=== PATIENT | female | born 1985 | race Two or more races ===

== ENCOUNTER 2016-10-28 20:39 | Emergency (ER) | payer OTHER ==
[2016-10-28 20:47] VITALS: BP 108/57; PULSE 91; TEMP 98.3; BMI 32.5
[2016-10-28] MEDS ORDERED: predniSONE 20 MG TABLET (UD) ONE (22:34)
[2016-10-28] MEDS ORDERED: ALBUTEROL SO4 2.5/IPRATROPIUM 0.5 INH SOL 3 ML VIAL.NEB. NEB ONE ×3 (22:34→23:25)
[2016-10-28] MEDS ORDERED: ALBUTEROL SO4 0.083% IH SOL 2.5 MG/3 ML VIAL.NEB. NEB ONE (22:46)
[2016-10-28] MEDS ORDERED: predniSONE 20 MG TABLET (UD) PO ONE (22:46)
--- NOTE | 2016-10-28 22:52 | PDOC ---
History of Present Illness - General Chief Complaint: Respiratory Stated Complaint: DIFFICULTY BREATHING Time Seen by Provider: 10/28/16 22:46 History Source: Patient Exam Limitations: No Limitations - History of Present Illness Initial Comments: 10/28/16 22:51 Patient is a 31 year old female with h/o multiple miscarriages, G7 P 1 who is 22 weeks on Lovenox, h/o C/S and D&C c/o "I can't breath" States she was expose to her sister who had similar symptoms. She has been having coughing , wheezing & sore throat x 1 week. States she called her doctor and was told to take tylenol cold and flu. States the sore throat got better but the wheezing and the cough continued. States for the past few day unable to breath and has wheezing and b/l sides hurt from coughing. Denies fever, chills, chest pain. Denies any abd pain, no vaginal bleeding. Feels the baby kicking. PMD: Dr Mccabe PMHX: as above, ALL: NKDA GENERAL/CONSTITUTIONAL: [No fever or chills. No weakness. No weight change.] HEAD, EYES, EARS, NOSE AND THROAT: [No change in vision. No ear pain or discharge. No sore throat.] CARDIOVASCULAR: [No chest pain or shortness of breath.] RESPIRATORY: (+) cough, wheezing, or hemoptysis.] GASTROINTESTINAL: [No nausea, vomiting, diarrhea or constipation. No rectal bleeding.] GENITOURINARY: [No dysuria, frequency, or change in urination.] MUSCULOSKELETAL: [No joint or muscle swelling or pain. No neck or back pain.] SKIN AND BREASTS: [No rash or easy bruising.] NEUROLOGIC: [No headache, vertigo, loss of consciousness, or loss of sensation.] PSYCHIATRIC: [No depression or anxiety.] ENDOCRINE: [No increased thirst. No abnormal weight change.] HEMATOLOGIC/LYMPHATIC: [No anemia, easy bleeding, or history of blood clots.] ALLERGIC/IMMUNOLOGIC: [No hives or skin allergy. No latex allergy.] GENERAL: [The patient is awake, alert, and fully oriented, in mild distress.] HEAD: [Normal with no signs of trauma.] EYES: [Pupils equal, round and reactive to light, extraocular movements intact, sclera anicteric, conjunctiva clear.] ENT: [Ears normal, nares patent, oropharynx clear without exudates. Moist mucous membranes.] NECK: [Normal range of motion, supple without lymphadenopathy, JVD, or masses.] LUNGS: (+) bilaterally expiratory wheezes, and no crackles, good air entry, no retraction] HEART: [Regular rate and rhythm, normal S1 and S2 without murmur, rub.] ABDOMEN: [Soft, nontender, normoactive bowel sounds. No guarding, no rebound. No masses, gravid 22 weeks (+) FH] EXTREMITIES: [Normal range of motion, no edema. No clubbing or cyanosis. No cords, erythema, or tenderness.] NEUROLOGICAL: [Cranial nerves II through XII grossly intact. Normal speech, normal gait.] PSYCH: [Normal mood, normal affect.] SKIN: [Warm, Dry, normal turgor, no rashes or lesions noted.] Past History - Past Medical History Allergies/Adverse Reactions: Allergies Allergy/AdvReac Type Severity Reaction Status Date / Time No Known Allergies Allergy Verified 10/28/16 20:46 Home Medications: Ambulatory Orders Albuterol Sulfate Inhaler - [Ventolin HFA Inhaler -] 2 inh PO Q4H #1 inh Prednisone [Deltasone -] 40 mg PO DAILY #4 tablet 10/29/16 - Surgical History Abdominal Surgery: Yes (d&C) - Immunization History Immunization Up to Date: No - Psycho/Social/Smoking Cessation Hx Anxiety: No Suicidal Ideation: No Smoking History: Current every day smoker Have you smoked in the past 12 months: Yes Number of Cigarettes Smoked Daily: 20 Information on smoking cessation initiated: No 'Breaking Loose' booklet given: 11/26/15 Hx Alcohol Use: No Drug/Substance Use Hx: No Substance Use Type: None *Physical Exam - Vital Signs Last Vital Signs Temp Pulse Resp BP Pulse Ox 98.3 F 91 H 18 108/57 98 10/28/16 20:43 10/28/16 20:43 10/28/16 20:43 10/28/16 20:43 10/28/16 20:43 ED Treatment Course - Medications Given in the ED: ED Medications Discontinued Medications Generic Name Dose Route Start Last Admin Trade Name Freq PRN Reason Stop Dose Admin Albuterol Sulfate 1 amp 10/28/16 22:46 10/28/16 22:50 Ventolin 0.083% Nebulizer Soln - NEB 10/28/16 22:47 1 amp ONCE ONE Administration Albuterol/Ipratropium 1 amp 10/28/16 22:46 10/28/16 22:50 Duoneb - NEB 10/28/16 22:47 1 amp ONCE ONE Administration Prednisone 60 mg 10/28/16 22:46 10/28/16 22:50 Deltasone - PO 10/28/16 22:47 60 mg ONCE ONE Administration Medical Decision Making - Medical Decision Making 10/28/16 23:45 Patient is a 31 year old female with h/o multiple miscarriages, G7 P 1 who is 22 weeks on Lovenox, h/o C/S and D&C c/o "I can't breath" States she was expose to her sister who had similar symptoms c/o coughing, wheezing, sore throat x 1 week consistent with bronchitis. will give neb treatment, Prednisone 60mg po 10/29/16 00:03 Patient is feeling better still has mild wheezing will continue nebs I discussed the physical exam findings, ancillary test results and final diagnoses with the patient. I answered all of the patient's questions. The patient was satisfied with the care received and felt comfortable with the discharge plan and treatment plan. The Patient agrees to follow up with the primary care physician within 24-72 hours. *DC/Admit/Observation/Transfer Diagnosis at time of Disposition: Bronchitis - Discharge Dispostion Disposition: HOME Condition at time of disposition: Stable - Prescriptions Prescriptions: Prednisone [Deltasone -] 40 mg PO DAILY #4 tablet Albuterol Sulfate Inhaler - [Ventolin HFA Inhaler -] 2 inh PO Q4H #1 inh - Patient Instructions Printed Discharge Instructions: DI for Acute Bronchitis Additional Instructions: Your Discharge Instructions: You must call primary care physician within 24 hours to arrange follow-up. Return to the Emergency Department with any new, persistent or worsening symptoms, for fever, chills, SOB, dizziness or any other concerning changes that may occur. - Post Discharge Activity Work/School Note: Back to Work
== END 2016-10-29 00:16 | disposition home or self-care (01) ==
LOC: JER 20:39 → JERFT 20:39 → JER 10-29 00:16
PROC: 3E0F7GC Introduction of Other Therapeutic Substance into Respiratory Tract, Via Natural or Artificial Opening (ICD-10-PCS; principal; 2016-10-28)
PROC: 3E0F7GC Introduction of Other Therapeutic Substance into Respiratory Tract, Via Natural or Artificial Opening (ICD-10-PCS; 2016-10-28)
PROC: 3E0F7GC Introduction of Other Therapeutic Substance into Respiratory Tract, Via Natural or Artificial Opening (ICD-10-PCS; 2016-10-28)
DX: O99.89 Other specified diseases and conditions complicating pregnancy, childbirth and the puerperium (principal); J40 Bronchitis, not specified as acute or chronic; Z79.01 Long term (current) use of anticoagulants; Z3A.22 22 weeks gestation of pregnancy
CPT/HCPCS: 94640; 99281-25

== ENCOUNTER 2016-11-17 19:28 | Emergency (ER) | payer OTHER ==
[2016-11-17 19:40] VITALS: BMI 32.5
--- NOTE | 2016-11-17 20:47 | PDOC ---
History of Present Illness - General History Source: Patient Exam Limitations: No Limitations - History of Present Illness Initial Comments: 11/17/16 21:01 Patient is a 31 year old female, 24 weeks , with no pmhx who presents to the ED with right flank pain. Patient states that she woke up today with right flank pain that radiates to the right side of her abdomen. She also reports 2 episodes of vomiting and nausea. Patient denies any fever. She denies any urinary symptoms. PSH - [employer] - Dr. Arceo <Court Hamlin - Last Filed: 11/17/16 21:01> <Mary Tena - Last Filed: 11/18/16 00:38> - General Chief Complaint: Pain, Acute Stated Complaint: ABD PAIN/ 24 WEEKS Time Seen by Provider: 11/17/16 20:35 Past History <Court Hamlin - Last Filed: 11/17/16 21:01> - Past Medical History Other medical history: denies - Surgical History Abdominal Surgery: Yes (d&C) - Immunization History Immunization Up to Date: No - Psycho/Social/Smoking Cessation Hx Anxiety: No Suicidal Ideation: No Smoking History: Current every day smoker Have you smoked in the past 12 months: Yes Number of Cigarettes Smoked Daily: 20 Information on smoking cessation initiated: No 'Breaking Loose' booklet given: 11/26/15 Hx Alcohol Use: No Drug/Substance Use Hx: No Substance Use Type: None <Mary Tena - Last Filed: 11/18/16 00:38> - Past Medical History Allergies/Adverse Reactions: Allergies Allergy/AdvReac Type Severity Reaction Status Date / Time No Known Allergies Allergy Verified 11/17/16 19:40 Home Medications: Ambulatory Orders Enoxaparin [Lovenox -] 40 mg SQ DAILY 11/17/16 Vit Calc,Iron,Folic [ Vitamins] 1 each PO 11/17/16 Review of Systems - Review of Systems Able to Perform ROS?: Yes Comments:: 11/17/16 21:03 GENERAL/CONSTITUTIONAL: No fever or chills. No weakness. HEAD, EYES, EARS, NOSE AND THROAT: No change in vision. No ear pain or discharge. No sore throat. CARDIOVASCULAR: No chest pain or shortness of breath. RESPIRATORY: No cough, wheezing, or hemoptysis. GASTROINTESTINAL: (+)nausea, vomiting. No diarrhea or constipation. GENITOURINARY: (+)r flank pain. No dysuria, frequency, or change in urination. MUSCULOSKELETAL: No joint or muscle swelling or pain. No neck or back pain. SKIN: No rash NEUROLOGIC: No headache, vertigo, loss of consciousness, or change in strength/ sensation. ENDOCRINE: No increased thirst. No abnormal weight change. HEMATOLOGIC/LYMPHATIC: No anemia, easy bleeding, or history of blood clots. ALLERGIC/IMMUNOLOGIC: No hives or skin allergy. <Court Hamlin - Last Filed: 11/17/16 21:01> *Physical Exam - Vital Signs Last Vital Signs Temp Pulse Resp BP Pulse Ox 97.9 F 84 18 111/65 99 11/17/16 19:36 11/17/16 19:36 11/17/16 19:36 11/17/16 19:36 11/17/16 19:36 - Physical Exam Comments: 11/17/16 21:04 GENERAL: Awake, alert, and fully oriented, in no acute distress HEAD: No signs of trauma EYES: PERRLA, EOMI, sclera anicteric, conjunctiva clear ENT: Auricles normal inspection, hearing grossly normal, nares patent, oropharynx clear without exudates. Moist mucosa NECK: Normal ROM, supple, no lymphadenopathy, JVD, or masses LUNGS: Breath sounds equal, clear to auscultation bilaterally. No wheezes, and no crackles HEART: Regular rate and rhythm, normal S1 and S2, no murmurs, rubs or gallops ABDOMEN: (+)gravid. Soft, nontender, normoactive bowel sounds. No guarding, no rebound. No masses EXTREMITIES: Normal range of motion, no edema. No clubbing or cyanosis. No cords, erythema, or tenderness NEUROLOGICAL: Cranial nerves II through XII grossly intact. Normal speech, normal gait SKIN: Warm, Dry, normal turgor, no rashes or lesions noted. <Court Hamlin - Last Filed: 11/17/16 21:01> - Vital Signs Last Vital Signs Temp Pulse Resp BP Pulse Ox 97.9 F 84 18 111/65 99 11/17/16 19:36 11/17/16 19:36 11/17/16 19:36 11/17/16 19:36 11/17/16 19:36 <Mary Tena - Last Filed: 11/18/16 00:38> ED Treatment Course - LABORATORY CBC & Chemistry Diagram: 11/17/16 21:20 11/17/16 21:20 <Mary Tena - Last Filed: 11/18/16 00:38> Medical Decision Making - Medical Decision Making 11/17/16 21:13 Pt is 24 weeks . Pt developed right neck and trapezius pain yesterday which then migrated to her right flank. She states that the pain radiated beltlike around her abdomen today. Pain is causing her to be nauseous and resulted in her vomiting twice. She has no abdominal surgiccal hx. Only pelvic surgeries: and a D+C. Mis5. Pt states that she has been taking Lovenox daily so that she can sustain her . She states that she had all kinds of hematologic assessment, but was never found to have anything. 11/17/16 21:47 Pt's CBC normal. UA shows small ketones. No blood in the urine. 11/18/16 00:36 Patient Name: Audie Hu THIS IS A PRELIMINARY REPORT FROM [facility] IMAGES: 33 EXAM DATE AND TIME: 2016-11-17 22:39:01.0 EXAM: ULTRASOUND RENAL INCOMPLETE Normal right kidney with no renal mass, stones or hydronephrosis. Left kidney not imaged. Cholelithiasis incidentally noted. Live intrauterine with heartbeat 133-135 bpm. THIS DOCUMENT HAS BEEN ELECTRONICALLY SIGNED 11/18/16 00:37 Pt will be sent upstairs to L+D for monitoring. She understands that she has GB stones and that she should eat leaner meals and tylenol for pain. <Mary Tena - Last Filed: 11/18/16 00:38> *DC/Admit/Observation/Transfer - Attestations Scribe Attestion: 11/17/16 21:04 Documentation prepared by JANETT Bajwa, acting as medical coding manager for Mary Tena MD. <Court Hamlin - Last Filed: 11/17/16 21:01> - Discharge Dispostion Admit: No <Mary Tena - Last Filed: 11/18/16 00:38> Diagnosis at time of Disposition: Gallstones, - Discharge Dispostion Disposition: HOME Condition at time of disposition: Stable - Patient Instructions Printed Discharge Instructions: DI for Gallstones
[2016-11-17] MEDS ORDERED: SODIUM CHLORIDE 0.9% 500 ML INFUS.BAG IV ONE (20:54)
[2016-11-17] MEDS ORDERED: morphine CARPU-JECT 2 MG/1 ML DISP.SYRIN IVPUSH ONE (20:55)
[2016-11-17] MEDS ORDERED: METOCLOPRAMIDE HCL INJECTION 10 MG/2 ML VIAL IVPB ONE (20:56)
[2016-11-17] MEDS ORDERED: ONDANSETRON 4 MG/2 ML VIAL IVPB ONE (21:07)
[2016-11-17] MEDS ORDERED: morphine CARPU-JECT 4 MG/1 ML DISP.SYRIN ONE (21:09)
[2016-11-17] MEDS ORDERED: ONDANSETRON 4 MG/2 ML VIAL ONE (21:10)
[2016-11-17 21:32] LABS: BASOPHIL 0.3 % (0-2.0); EOSINOPHIL 0.4 % (0-4.5); MCH 29.1 pg (25.7-33.7); MCHC 33.1 g/dl (32.0-36.0); MEAN CELL VOLUME 87.9 fl (80-96); MEAN PLT VOLUME 8.2 fl (7.5-11.1); NEUTROPHILS 74.4 % (42.8-82.8); PLATELET COUNT 184 K/MM3 (134-434); RDW 13.4 % (11.6-15.6); WHITE BLOOD COUNT 9.6 K/mm3 (4.0-10.0)
[2016-11-17 21:33] LABS: URINE APPEARANCE CLEAR; URINE BILIRUBIN NEGATIVE (NEGATIVE); URINE BLOOD NEGATIVE (NEGATIVE); URINE COLOR STRAW; URINE GLUCOSE (UA) NEGATIVE (NEGATIVE); URINE KETONE TRACE (NEGATIVE); URINE LEUK ESTERASE NEGATIVE (NEGATIVE); URINE NITRITE NEGATIVE (NEGATIVE); URINE PROTEIN NEGATIVE (NEGATIVE); URINE UROBILINOGEN NEGATIVE mg/dL (0.2-1.0)
[2016-11-17 21:51] LABS: AMYLASE 43 U/L (25-115)
[2016-11-17 21:56] LABS: ALBUMIN 2.4 g/dl (3.4-5.0); ANION GAP 9 (8-16); BILIRUBIN,TOTAL 0.2 mg/dL (0.2-1.0); CALCIUM 8.9 mg/dL (8.5-10.1); CO2 23 mmol/L (21-32); CREATININE 0.5 mg/dL (0.55-1.02); GLUCOSE,RANDOM 80 mg/dL (74-106); SGOT/AST 15 U/L (15-37); SGPT/ALT 17 U/L (12-78); TOT PROT 6.2 g/dl (6.4-8.2)
[2016-11-17 21:57] LABS: ALK PHOS 100 U/L (45-117)
[2016-11-18] MEDS ORDERED: MAG HYDROX/AL HYDROX/SIMETH 30 ML UNIT-DOSE CUP PO ONE (00:37)
[2016-11-18] MEDS ORDERED: MAG HYDROX/AL HYDROX/SIMETH 30 ML UNIT-DOSE CUP ONE (00:53)
--- NOTE | 2016-11-18 01:52 | PN ---
Progress Note (short form) - Note Progress Note: 31 y/o comes at 24 weeks from the er with complaints of gb pain. Pt was cleared by the er and is a pt of dr hussein. Baby is adequate for 24 wks. No lof, no bleeding. Will dc home
[2016-11-18 02:40] VITALS: BP 121/63; PULSE 83; TEMP 98.2
== END 2016-11-18 02:30 | disposition home or self-care (01) ==
LOC: JER 19:28
PROC: 3E033NZ Introduction of Analgesics, Hypnotics, Sedatives into Peripheral Vein, Percutaneous Approach (ICD-10-PCS; principal; 2016-11-17)
PROC: 3E033GC Introduction of Other Therapeutic Substance into Peripheral Vein, Percutaneous Approach (ICD-10-PCS; 2016-11-17)
DX: O99.612 Diseases of the digestive system complicating pregnancy, second trimester (principal); K80.20 Calculus of gallbladder without cholecystitis without obstruction; Z3A.24 24 weeks gestation of pregnancy
CPT/HCPCS: 36415; 76775-TC; 80053; 81003; 82150; 83690; 85025; 96374; 96375; 99283-25

== ENCOUNTER 2017-05-31 07:26 | Emergency (ER) | payer OTHER ==
[2017-05-31 07:40] VITALS: BP 114/80; PULSE 72; TEMP 97.6; BMI 30.5
[2017-05-31] MEDS ORDERED: KETOROLAC TROMETHAMINE 30 MG/1 ML VIAL IVPUSH ONE (07:44)
[2017-05-31] MEDS ORDERED: KETOROLAC TROMETHAMINE 30 MG/1 ML VIAL ONE (07:46)
--- NOTE | 2017-05-31 08:10 | PDOC ---
Attending Attestation - Resident Resident Name: Ramón Couch - ED Attending Attestation I have performed the following: I have examined & evaluated the patient, The case was reviewed & discussed with the resident, I agree w/resident's findings & plan, Exceptions are as noted - Physicial Exam PE: 05/31/17 11:27 Patient is awake and alert, lying supine, in mild to moderate distress. nc, atr perrla, eomi cta, rrr sft, nt, nd, no rash + straight leg on the right back: no midline ttp, + left paraspinal ttp reproducing pts sxs gait-stable dtrs: + 2 b/l at the knees/ankles - Medical Decision Making 05/31/17 12:25 Patient is a well-appearing 31-year-old female who presents with atraumatic back pain. No focal neurological deficits noted. DTRs are +2 at the ankles and knees bilaterally; straight leg is positive on the right; there is no saddle paresthesias. Patient is able to ambulate without difficulty. Motor is 5 of 54 ; I do not suspect cord compression or cauda equina at this time. Patient's symptoms improved after administration of Toradol and Valium. Will discharge with NSAIDs and anti-spasmodics with PMD follow-up. <Thad Duval - Last Filed: 05/31/17 12:24> - HPI HPI: 05/31/17 08:28 The patient is a 31 year old female (), with a significant past medical history of scoliosis, who presents to the emergency department with, approx. one day of subjective fever and sudden onset of sharp back pain radiating down to the left knee. The patient also reports intermittent back spasms secondary to the back pain. She denies recent headache or dizziness. She denies recent nausea, vomit, diarrhea or constipation. She denies recent chest pain or shortness of breath. Allergies: NKA Documentation prepared by Antelmo Santiago, acting as emergency medical service manager for Thad Duval MD. <Antelmo Santiago - Last Filed: 05/31/17 14:25>
[2017-05-31 08:18] LABS: BASO % 0.6 % (0-2.0); EOS % 0.6 % (0-4.5); HEMATOCRIT 45.1 % (32.4-45.2); HEMOGLOBIN 14.8 GM/dL (10.7-15.3); LYMPH % 28.4 % (8-40); MCH 28.3 pg (25.7-33.7); MCHC 32.8 g/dl (32.0-36.0); MEAN CELL VOLUME 86.3 fl (80-96); MEAN PLT VOLUME 8.8 fl (7.5-11.1); MONO % 4.3 % (3.8-10.2); NEUT % 66.1 % (42.8-82.8); PLATELET COUNT 254 K/MM3 (134-434); RBC 5.22 M/mm3 (3.60-5.2); RDW 14.2 % (11.6-15.6); WHITE BLOOD COUNT 10.3 K/mm3 (4.0-10.0)
[2017-05-31] MEDS ORDERED: diazePAM 5 MG TABLET PO ONE (08:26)
[2017-05-31] MEDS ORDERED: diazePAM 5 MG TABLET ONE (08:45)
--- NOTE | 2017-05-31 09:09 | PDOC ---
History of Present Illness - General Chief Complaint: Back Pain Stated Complaint: BACK PAIN Time Seen by Provider: 05/31/17 07:37 History Source: Patient Exam Limitations: No Limitations - History of Present Illness Initial Comments: 05/31/17 09:08 The patient is a 31F with a PMH of scoliosis who presents to the ER with sudden onset back pain. The patient states that last night around 11 she felt some soreness in her back with a low grade fever. This morning she woke up at 0300 to feed her child with excrutiating back pain, so bad that she could not move out of bed. She describes the pain as starting in her L lower back and radiating down to her knee. She has never had pain like this in the past. She denies any numbness/tingling/weakness (especially in her area), bowel/ bladder incontinence, hx of cancer, herniated disk, history of nephrolithiasis. She is currently on her menstrual cycle. Past History - Past Medical History Allergies/Adverse Reactions: Allergies Allergy/AdvReac Type Severity Reaction Status Date / Time No Known Allergies Allergy Verified 05/31/17 07:40 Home Medications: Ambulatory Orders Cyclobenzaprine HCl [Flexeril -] 10 mg PO TID #21 tablet 05/31/17 Ibuprofen 600 mg PO TID #21 tablet 05/31/17 COPD: No Disorders: Yes (multiple 1st tri miscarriages.) - Surgical History Abdominal Surgery: Yes (d&C) - Immunization History Immunization Up to Date: No - Suicide/Smoking/Psychosocial Hx Smoking History: Current every day smoker Have you smoked in the past 12 months: Yes Number of Cigarettes Smoked Daily: 20 Information on smoking cessation initiated: No 'Breaking Loose' booklet given: 11/26/15 Hx Alcohol Use: No Drug/Substance Use Hx: No Substance Use Type: None Review of Systems - Review of Systems Able to Perform ROS?: Yes Comments:: 05/31/17 09:18 GENERAL/CONSTITUTIONAL: Positive for low grade fever. No chills. No weakness. HEAD, EYES, EARS, NOSE AND THROAT: No change in vision. No ear pain or discharge. No sore throat. CARDIOVASCULAR: No chest pain, palpitations, or lightheadedness. RESPIRATORY: No cough, wheezing, shortness of breath, or hemoptysis. GASTROINTESTINAL: No nausea, vomiting, diarrhea, constipation, or abdominal pain. GENITOURINARY: No dysuria, frequency, hematuria, or change in urination. MUSCULOSKELETAL: positive for back pain. No joint or muscle swelling or pain. SKIN: No rash or lesions. NEUROLOGIC: No headache, numbness, tingling, weakness, loss of consciousness, or change in strength/sensation. ENDOCRINE: No increased thirst. No abnormal weight change. HEMATOLOGIC/LYMPHATIC: No anemia, easy bleeding, or history of blood clots. ALLERGIC/IMMUNOLOGIC: No hives or skin allergy. Is the patient limited [place]alan proficient: No *Physical Exam - Vital Signs Last Vital Signs Temp Pulse Resp BP Pulse Ox 97.6 F 72 18 114/80 100 05/31/17 07:26 05/31/17 07:26 05/31/17 07:26 05/31/17 07:26 05/31/17 07:26 - Physical Exam Comments: 05/31/17 09:19 GENERAL: Well developed, well nourished. Awake and alert, laying down 2/2 pain. In mild distress. HEENT: Normocephalic, atraumatic. Hearing grossly normal. Moist mucous membranes. PERRLA, EOMI. No conjunctival pallor. Sclera are non-icteric. NECK: Supple. Full ROM. No JVD.No lymphadenopathy. CARDIOVASCULAR: Regular rate and rhythm. No murmurs, rubs, or gallops. PULMONARY: No evidence of respiratory distress. Lungs clear to auscultation bilaterally. No wheezing, rales or rhonchi. ABDOMINAL: Soft. Non-tender. Non-distended. No rebound or guarding. GENITOURINARY: No CVA tenderness bilaterally. MUSCULOSKELETAL: Normal range of motion at all joints. No bony deformities or tenderness. EXTREMITIES: No cyanosis. No clubbing. No edema. No calf tenderness. SKIN: Warm and dry. Normal capillary refill. No rashes. No jaundice. NEUROLOGICAL: Alert, awake, appropriate. Cranial nerves 2-12 intact. No deficits to light touch and temperature in the lower extremities. No motor deficits in the lower extremities. Normal speech. Gait is unobservable 2/2 pt pain. PSYCHIATRIC: Cooperative. Good eye contact. Appropriate mood and affect. ED Treatment Course - LABORATORY CBC & Chemistry Diagram: 05/31/17 07:55 05/31/17 09:00 - ADDITIONAL ORDERS Additional order review: Laboratory Results 05/31/17 05/31/17 07:55 07:55 Sodium Cancelled Potassium Cancelled Chloride Cancelled Carbon Dioxide Cancelled Anion Gap Cancelled BUN Cancelled Creatinine Cancelled Creat Clearance w eGFR Cancelled Random Glucose Cancelled Calcium Cancelled Total Bilirubin Cancelled AST Cancelled ALT Cancelled Alkaline Phosphatase Cancelled Total Protein Cancelled Albumin Cancelled Serum , Qual Negative 05/31/17 07:55 RBC 5.22 H D MCV 86.3 MCHC 32.8 RDW 14.2 MPV 8.8 Neutrophils % 66.1 Lymphocytes % 28.4 D Monocytes % 4.3 Eosinophils % 0.6 Basophils % 0.6 - Medications Given in the ED: ED Medications Discontinued Medications Generic Name Dose Route Start Last Admin Trade Name [place] PRN Reason Stop Dose Admin Diazepam 10 mg 05/31/17 08:26 05/31/17 08:47 Valium - PO 05/31/17 08:27 10 mg ONCE ONE Administration Ketorolac Tromethamine 30 mg 05/31/17 07:44 05/31/17 07:55 Toradol Injection - IVPUSH 05/31/17 07:45 30 mg ONCE ONE Administration Medical Decision Making - Medical Decision Making 05/31/17 09:22 The patient is a 31F with a PMH of scoliosis who presents with atraumatic back who presents with sudden onset back pain. Due to the radiation to her L knee, I am concerned for a musculoskeletal pathology. Will give toradol and valium for pain relief. Pending UA. 05/31/17 11:33 Pending UA. Pt is ambulatory. Will d/c with ibuprofen and flexeril and PCP f/u. *DC/Admit/Observation/Transfer Diagnosis at time of Disposition: Back pain Qualifiers: Back pain location: low back pain Chronicity: acute Back pain laterality: left Sciatica presence: with sciatica Sciatica laterality: sciatica of left side Qualified Code(s): M54.42 - Lumbago with sciatica, left side - Discharge Dispostion Disposition: HOME Condition at time of disposition: Stable Admit: No - Prescriptions Prescriptions: Cyclobenzaprine HCl [Flexeril -] 10 mg PO TID #21 tablet Ibuprofen 600 mg PO TID #21 tablet - Referrals - Patient Instructions Printed Discharge Instructions: DI for Sciatica Additional Instructions: Please return to the ER if symptoms persist, worsen, or new symptoms arise. Please follow up with your primary care physician in 2-3 days. Please return to the ER if you have any signs or symptoms of chest pain, shortness of breath, uncontrollable fever, chills, nausea, vomiting, numbness, tingling, or weakness in any part of your body, changes in vision, or slurred speech. Please take your medications as prescribed. - Post Discharge Activity
[2017-05-31 09:17] LABS: ALBUMIN 3.3 g/dl (3.4-5.0); ANION GAP 7 (8-16); BILIRUBIN,TOTAL 0.4 mg/dL (0.2-1.0); BLOOD UREA NITROGEN 9 mg/dL (7-18); CALCIUM 8.2 mg/dL (8.5-10.1); CHLORIDE 109 mmol/L (98-107); CO2 25 mmol/L (21-32); CREATININE 0.6 mg/dL (0.55-1.02); GLUCOSE,RANDOM 89 mg/dL (74-106); POTASSIUM 3.8 mmol/L (3.5-5.1); SGOT/AST 15 U/L (15-37); SGPT/ALT 28 U/L (12-78); SODIUM 141 mmol/L (136-145); TOT PROT 6.5 g/dl (6.4-8.2)
[2017-05-31 09:18] LABS: ALK PHOS 115 U/L (45-117)
[2017-05-31 11:33] LABS: URINE APPEARANCE CLEAR; URINE BILIRUBIN NEGATIVE (NEGATIVE); URINE BLOOD 2+ (NEGATIVE); URINE COLOR LTYELLOW; URINE GLUCOSE (UA) NEGATIVE (NEGATIVE); URINE KETONE NEGATIVE (NEGATIVE); URINE LEUK ESTERASE NEGATIVE (NEGATIVE); URINE NITRITE NEGATIVE (NEGATIVE); URINE PROTEIN NEGATIVE (NEGATIVE); URINE UROBILINOGEN NEGATIVE mg/dL (0.2-1.0)
[2017-05-31 11:37] LABS: EPI CELLS RARE /HPF (FEW)
== END 2017-05-31 12:11 | disposition home or self-care (01) ==
LOC: JER 07:26
PROC: 3E0333Z Introduction of Anti-inflammatory into Peripheral Vein, Percutaneous Approach (ICD-10-PCS; principal; 2017-05-31)
DX: M54.42 Lumbago with sciatica, left side (principal)
CPT/HCPCS: 36415; 80053; 81003; 81015; 84703; 85025; 87086; 96374; 99282-25

== ENCOUNTER 2021-03-15 19:55 | Emergency (ER) | payer OTHER ==
[2021-03-15 20:01] VITALS: BP 110/78; PULSE 86; TEMP 97; BMI 27.2
[2021-03-15 21:24] LABS: BASO % 0.3 % (0-2.0); EOS % 0.9 % (0-4.5); HEMATOCRIT 41.9 % (32.4-45.2); LYMPH % 37.2 % (8-40); MCHC 33.5 g/dl (32.0-36.0); MEAN CELL VOLUME 86.5 fl (80-96); MEAN PLT VOLUME 7.9 fl (7.5-11.1); MONO % 5.3 % (3.8-10.2); NEUT % 56.3 % (42.8-82.8); PLATELET COUNT 210 10^3/uL (134-434); RBC 4.85 M/mm3 (3.60-5.2); RDW 13.8 % (11.6-15.6); WHITE BLOOD COUNT 9.6 K/mm3 (4.0-10.0)
[2021-03-15 21:28] LABS: EPI CELLS 4 /uL (0-25.1); HYALINE CASTS 0 /uL (0-3.1); URINE APPEARANCE CLEAR; URINE BACTERIA 40 /uL (0-1359); URINE BILIRUBIN NEGATIVE (NEGATIVE); URINE COLOR YELLOW; URINE GLUCOSE (UA) NEGATIVE (NEGATIVE); URINE KETONE NEGATIVE (NEGATIVE); URINE LEUK ESTERASE NEGATIVE (NEGATIVE); URINE NITRITE NEGATIVE (NEGATIVE); URINE PROTEIN NEGATIVE (NEGATIVE); URINE RBC 43 /uL (0-23.9); URINE UROBILINOGEN 0.2 mg/dL (0.2-1.0); URINE WBC 0 /uL (0-25.8)
[2021-03-15 22:13] LABS: BILIRUBIN,TOTAL 0.3 mg/dL (0.2-1); CALCIUM 8.6 mg/dL (8.5-10.1); CREATININE 0.6 mg/dL (0.55-1.3); TOT PROT 6.5 g/dl (6.4-8.2)
== END 2021-03-15 22:37 | disposition home or self-care (01) ==
LOC: JER 19:55
DX: O26.851 Spotting complicating pregnancy, first trimester (principal); Z3A.01 Less than 8 weeks gestation of pregnancy
CPT/HCPCS: 36415; 76817-TC; 80053; 81003; 84702; 85025; 86850; 86900; 86901; 87086; 99284-25